=== PATIENT | female | born 1975 | race African-American/Black ===

== ENCOUNTER 2016-06-02 08:00 | Outpatient (CLI) | payer OTHER ==
--- NOTE | 2016-06-02 10:17 | Mammography Report ---
Bilateral mammogram: Compared to 02/24/14. CAD study utilized. Findings: Heterogeneous breast parenchyma bilaterally. Focal 3 mm dense asymmetry noted at the subareolar area left breast. No microcalcification. Normal axilla. Impression: BI-RADS CATEGORY: 0 = Needs additional imaging evaluation ACR BI-RADS MAMMOGRAPHIC CODES: 0 = Needs additional imaging evaluation; 1 = Negative; 2 = Benign; 3 = Probably benign; 4 = Suspicious; 5 = Malignant; 6 = Known biopsy-proven malignancy COMMENT: 1. Dense breast tissue, i.e., adenosis, fibrocystic changes, etc., may obscure an underlying neoplasm. 2. Approximately 10% of cancers are not detected with mammography. 3. A negative mammography report should not delay biopsy if a clinically suspicious mass is present. COMMENT: Patient follow-up letters are generated in [employer]. New 3 mm circumscribed density noted subareolar area left breast. Recommend spot mag and if necessary sonographic examination.
== END 2016-06-02 08:01 | disposition home or self-care (01) ==
LOC: MAMMO 08:00
PROVIDERS: ATTEND Family Medicine
DX: Z12.31 Encounter for screening mammogram for malignant neoplasm of breast (principal)
CPT/HCPCS: 77067; G0202

== ENCOUNTER 2016-07-14 09:00 | Outpatient (CLI) | payer OTHER ==
--- NOTE | 2016-07-14 10:27 | Mammography Report ---
Spot compression magnification view 90degree lateral of 3 mm circumscribed density mid left breast posterior to the nipple or areola followed by sonographic examination. Findings: On spot magnification view there is persistence of density noted and appears fairly well defined. No microcalcification is seen. On sonographic examination no cystic or solid masses identified. Impression: Probably benign density. 6 month followup with mammogram and if necessary sonogram recommended. BI-RADS CATEGORY: 3 = Probably benign ACR BI-RADS MAMMOGRAPHIC CODES: 0 = Needs additional imaging evaluation; 1 = Negative; 2 = Benign; 3 = Probably benign; 4 = Suspicious; 5 = Malignant; 6 = Known biopsy-proven malignancy COMMENT: 1. Dense breast tissue, i.e., adenosis, fibrocystic changes, etc., may obscure an underlying neoplasm. 2. Approximately 10% of cancers are not detected with mammography. 3. A negative mammography report should not delay biopsy if a clinically suspicious mass is present. COMMENT: Patient follow-up letters are generated in [employer].
== END 2016-07-14 09:01 | disposition home or self-care (01) ==
LOC: MAMMO 09:00
PROVIDERS: ATTEND Family Medicine
DX: N63 Unspecified lump in breast (principal); R92.2 Inconclusive mammogram
CPT/HCPCS: 76641; G0206